=== PATIENT | female | born 1995 | race Asian ===

== ENCOUNTER → 2018-04-27 | Outpatient (CLI) | payer OTHER ==
--- NOTE | 2018-04-27 17:43 | Diagnostic Imaging Report ---
INDICATION: Right ankle pain. AP, oblique, and lateral views of the right ankle are obtained. FINDINGS: No fracture or acute bony abnormality is seen. IMPRESSION: Negative right ankle. Dictated by: Dictated on workstation # [id number]
== END ==
LOC: RAD 15:48
PROVIDERS: ATTEND Nurse Practitioner Family
DX: M25.571 Pain in right ankle and joints of right foot (principal)
CPT/HCPCS: 73610